=== PATIENT | female | born 1990 | race Caucasian/White ===

== ENCOUNTER 2019-01-15 10:32 | Emergency (ER) | payer BC ==
[~2019-01-15] VITALS: Ht 165.1 cm; Wt 95.3 kg
[2019-01-15 10:55] VITALS: BP 119/79
[2019-01-15] MEDS ORDERED: PRED-220 PO (11:44)
[2019-01-15] MEDS ORDERED: DIPH25CA58 PO (11:44)
[2019-01-15] MEDS ORDERED: FAMO20TA5 PO (11:44)
--- NOTE | 2019-01-15 11:44 | PHYS DOC ---
Past Medical History Past Medical History: No Pertinent History Past Surgical History: Appendectomy Alcohol Use: None Drug Use: None Adult General Chief Complaint Chief Complaint: SKIN RASH/ABSCESS HPI HPI Patient is a 28 year old female who presents to the ED today with her complaining of poison celine rash that began 6 days ago while cutting trees. Patient denies any fever. Review of Systems Review of Systems Constitutional: Denies fever or chills [] Musculoskeletal: Denies back pain or joint pain [] Integument: Reports rash Neurologic: Denies headache, focal weakness or sensory changes [] All other systems were reviewed and found to be within normal limits, except as documented in this note. Allergies Allergies Allergies Coded Allergies Type Severity Reaction Last Updated Verified No Known Drug Allergies 01/15/19 No Physical Exam Physical Exam Constitutional: Well developed, well nourished, no acute distress, non-toxic appearance. [] Skin: Mild amount of erythematous linear rash on the abdomen, bilateral upper extremities, trace amount on the face, rash consistent with poison celine. Back: No tenderness, no CVA tenderness. [] Extremities: No tenderness, no cyanosis, no clubbing, ROM intact, no edema. [] Neurologic: Alert and oriented X 3, normal motor function, normal sensory function, no focal deficits noted. [] Psychologic: Affect normal, judgement normal, mood normal. [] Current Patient Data Vital Signs Vital Signs Date Time Temp Pulse Resp B/P (MAP) Pulse Ox O2 Delivery O2 Flow Rate FiO2 01/15/19 10:55 98.2 76 16 119/79 (92) 99 Room Air 98.2 EKG EKG [] Radiology/Procedures Radiology/Procedures [] Course & Med Decision Making Course & Med Decision Making Pertinent Labs and Imaging studies reviewed. (See chart for details) Patient has poison celine rash. Will be discharged after a dose of prednisone. Also discharged with Pepcid and Benadryl. Follow-up with carpenter inspector or PCP in 2 weeks as needed. Dragon Disclaimer Dragon Disclaimer This electronic medical record was generated, in whole or in part, using a voice recognition dictation system. Departure Departure Impression: Primary Impression: Contact dermatitis due to poison celine Disposition: HOME, SELF-CARE Condition: STABLE Referrals: UNKNOWN PCP NAME (PCP) SUDHEER WALKER MD follow up in 2-4 weeks Patient Instructions: Poison Celine, [id number] Additional Instructions: You have poison celine rash. Take the prescribed medications as ordered. Follow-up with your own doctor the provided carpenter inspector in 2-4 weeks. Scripts Diphenhydramine Hcl (BENADRYL) 25 Mg Capsule 1 CAP PO Q6HRS, #30 CAP 1 Refill Prov: NAYAN RODRIGUEZ APRN 01/15/19 Famotidine (FAMOTIDINE) 20 Mg Tablet 20 MG PO DAILY, #14 TAB Prov: NAYAN RODRIGUEZ APRN 01/15/19 Prednisone (PREDNISONE ) 10 Mg Tablet 10 MG PO UD for PREDNISONE TAPER, #39 TAB 0 Refills Take 3 tablets by mouth twice a day for 3 days, then take 2 tablets by mouth twice a day for 3 days, then take 1 tablet by mouth twice a day for 3 days, then take 1 tablet by mouth daily x 3 days, then stop. Prov: NAYAN RODRIGUEZ APRN 01/15/19 NAYAN RODRIGUEZ APRN Jan 15, 2019 11:44
== END 2019-01-15 12:07 | disposition home or self-care (01) ==
LOC: ER 10:32
DX: L23.7 Allergic contact dermatitis due to plants, except food (principal); Z90.89 Acquired absence of other organs
CPT/HCPCS: 99283